=== PATIENT | male | born 1995 | race Caucasian/White ===

== ENCOUNTER 2019-11-24 15:11 | Emergency (ER) | payer OTHER ==
[~2019-11-24] VITALS: Ht 182.9 cm; Wt 60.3 kg
[2019-11-24 15:29] VITALS: BP 120/65
[2019-11-24] MEDS ORDERED: TDAP [DIPH/PERTUSSIS/TET] 0.5 ML VIAL IM ONE ×2 (15:50→16:00)
--- NOTE | 2019-11-24 16:10 | NUR ---
XRAY AT BEDSIDE
--- NOTE | 2019-11-24 16:54 | NUR ---
TECH AT BEDSIDE FOR WOUND CLEANING AND DRESSING
== END 2019-11-24 17:01 | disposition home or self-care (01) ==
LOC: EDBD 15:15 → ER 15:15
DX: S91.111D Laceration without foreign body of right great toe without damage to nail, subsequent encounter (principal); Z23 Encounter for immunization; Z88.0 Allergy status to penicillin; X58.XXXD Exposure to other specified factors, subsequent encounter
CPT/HCPCS: 73660-TC; 90715

== ENCOUNTER 2020-12-12 19:54 | Emergency (ER) | payer BC, OTHER ==
[~2020-12-12] VITALS: Ht 185.4 cm; Wt 65.8 kg
[2020-12-12 20:35] VITALS: BP 124/76
== END 2020-12-12 21:05 | disposition home or self-care (01) ==
LOC: ER 19:56
DX: T48.6X1A Poisoning by antiasthmatics, accidental (unintentional), initial encounter (principal); T45.0X1A Poisoning by antiallergic and antiemetic drugs, accidental (unintentional), initial encounter; R94.31 Abnormal electrocardiogram [ECG] [EKG]; Z88.0 Allergy status to penicillin; Y92.89 Other specified places as the place of occurrence of the external cause